=== PATIENT | female | born 1955 | race Caucasian/White ===

== ENCOUNTER 2023-06-13 16:02 | Emergency (ER) | payer MEDICARE, SELFPAY ==
--- NOTE | ~2023-06-13 | XR_ITS ---
XR wrist LT min 3V 06/13/2023 16:27 Indication: Left wrist pain Procedure: 4 views left wrist Comparison: No prior studies for comparison. Findings: There is widening of the scapholunate interval. There is polyarticular osteoarthritis of th e radiocarpal, triscaphe and first carpal metacarpal joints. No acute fracture is identified. Normal mineralization. No foreign bodies. No significant focal soft tissue abnormality. Impression: 1: Polyarticular osteoarthritis. 2: Widening of the scapholunate interval suggesting ligamentous injury. Reviewed, dictated and finalized at location B. [facility] Impression: 1: Polyarticular osteoarthritis. 2: Widening of the scapholunate interval suggesting ligamentous injury.
[2023-06-13 16:11] VITALS: BP 123/82; PULSE 75; RESP 18; TEMP 36.2; O2SAT 95
--- NOTE | 2023-06-13 17:58 | ED.UPPEXIN ---
HPI - Extremity Injury (Upper) General Chief Complaint: Extremity Injury, Upper Stated Complaint: arm injury Time Seen by Provider: 06/13/23 17:16 Source: patient Mode of arrival: ambulatory Limitations: no limitations History of Present Illness HPI narrative: This is a 67-year-old female that presents to the emergency department after a ground level fall today. Reports she tripped and fell forward. Caught herself with her hands. Reports abrasions to the bilateral hands. Also reports left wrist pain. Worse with movement and relieved with rest. Denies decreased range of motion or numbness. No other focal injuries or areas of pain. Review of Systems Review of Systems: CONSTITUTIONAL: Denies fever SKIN: Reports abrasion MUSCULOSKELETAL: Reports joint pain, and myalgia. NEUROLOGIC: Denies numbness, or weakness. All systems reviewed & are unremarkable except as noted in HPI and below PMFSH Past Medical History Medical History (Updated 06/13/23 @ 18:14 by Gerda Johnson PA-C) History of hypertension Social History Social History (Updated 06/13/23 @ 18:14 by Gerda Johnson PA-C) Smoking status: Never smoker Exam Narrative: GENERAL: Well-appearing, well-nourished, and in no acute distress. HEAD: Normocephalic, atraumatic. EYES: EOMI. EXTREMITIES: Normal range of motion. No edema or obvious deformity. Bilateral palmar surface of hands with superficial abrasions. Normal radial pulses. Normal sensation SKIN: Warm, dry, no rash. NEURO: No focal deficits. Alert and oriented x3. PSYCH: Normal mood and affect Course Course Emergency Course: Patient updated on workup and agrees with plan of care Vital Signs Vital signs: Vital Signs Temperature 97.1 F L 06/13/23 16:11 Pulse Rate 75 06/13/23 16:11 Respiratory Rate 18 06/13/23 16:11 Blood Pressure 123/82 06/13/23 16:11 Pulse Oximetry 95 06/13/23 16:11 Oxygen Delivery Room Air 06/13/23 16:11 Temperature 97.1 F L 06/13/23 16:11 Pulse Rate 75 06/13/23 16:11 Respiratory Rate 18 06/13/23 16:11 Blood Pressure 123/82 06/13/23 16:11 Pulse Oximetry 95 06/13/23 16:11 Oxygen Delivery Room Air 06/13/23 16:11 Procedures Orthopedic Splinting/Casting Injury #1: Splinting/Casting Date: 06/13/23 Splinting/Casting Time: 18:13 Side: left Upper Extremity Injury Location: wrist Upper Extremity Immobilizer: Jose wrap MDM - Extremity Injury (Upper) MDM Narrative Medical decision making narrative: Patient presents to the emergency department after a ground level fall today with left wrist injury. Left wrist x-ray shows osteoarthritis. Widening of the scapholunate interval suggesting ligamentous injury. Patient is neurovascularly intact. She was updated on workup. Placed in Jose wrap. Instructed to follow up with hand surgery. She was given warnings to return to the ER Differential Diagnosis Differential diagnosis: Likely fracture of wrist and other (Wrist sprain) Imaging Data Radiologist's impression: ITS Impressions Wrist X-Ray 06/13/23 16:33 Impression: 1: Polyarticular osteoarthritis. 2: Widening of the scapholunate interval suggesting ligamentous injury. Critical Care Time Critical Care Time Critical Care Time: No Discharge Plan Discharge Clinical Impression: Left wrist sprain Qualifiers: Encounter type: initial encounter Qualified Code(s): S63.502A - Unspecified sprain of left wrist, initial encounter Scapho-lunate dissociation Qualifiers: Laterality: left Qualified Code(s): M25.332 - Other instability, left wrist Patient Disposition: Home, Self-Care Condition: Stable Instructions: Wrist Sprain (ED) Additional Instructions: Return to the ER if you experience fever, redness and swelling of your extremity, numbness or any other symptoms that are concerning to you Wear JOSE wrap. No weight on the affected extremity. Ice and elevate extremity. P
[2023-06-13] MEDS: IBUPROFEN 600 MG TABLET PO (18:17)
== END 2023-06-13 18:32 | disposition home or self-care (01) ==
PROVIDERS: Emergency Provider Physician Assistant
DX: S63.502A Unspecified sprain of left wrist, initial encounter (principal); S63.092A Other subluxation of left wrist and hand, initial encounter; I10 Essential (primary) hypertension; W01.0XXA Fall on same level from slipping, tripping and stumbling without subsequent striking against object, initial encounter
CPT/HCPCS: 73110; 99284; A9270